=== PATIENT | female | born 2000 | race Caucasian/White ===

== ENCOUNTER 2019-02-24 21:08 | Emergency (ER) | payer OTHER ==
[2019-02-24 21:24] VITALS: BP 123/74; PULSE 63; RESP 16; TEMP 98.2
[2019-02-24] MEDS ORDERED: LIDOCAINE 1%-EPI 1:100,000 20 ML VIAL SQ STA (21:49)
--- NOTE | 2019-02-24 21:51 | ED ---
General Adult HPI - General Chief complaint: Skin/Abscess/Foreign Body Stated complaint: cyst Time Seen by Provider: 02/24/19 21:25 Source: patient Mode of arrival: ambulatory Limitations: no limitations - History of Present Illness Initial comments: Patient is a 18-year-old female with history of pilonidal cyst is presenting to emergency Department with a chief complaint of a cyst on the tailbone. She reports the last time she had a possible cyst was 2 years ago and was treated with antibiotics no incision and drainage. She states few days ago she developed a cyst on the tailbone with no previous trauma to the region. She states it has gradually increased in size and pain severity. Patient reports it is very uncomfortable to sit or move as it causes irritation to the region. Patient reports taking [id number] ibuprofen with minimal improved. - Related Data Previous Rx's Medication Instructions Recorded Doxycycline Monohydrate [Monodox] 100 mg PO Q12HR #14 cap 02/24/19 Allergies Allergy/AdvReac Type Severity Reaction Status Date / Time sulfamethoxazole Allergy Rash/Hives Verified 02/24/19 21:24 [From Bactrim] trimethoprim [From Bactrim] Allergy Rash/Hives Verified 02/24/19 21:24 Review of Systems ROS Statement: Those systems with pertinent positive or pertinent negative responses have been documented in the HPI. ROS Other: All systems not noted in ROS Statement are negative. Past Medical History Past Medical History: No Reported History History of Any Multi-Drug Resistant Organisms: MRSA Date of last positivie culture/infection: 2013 MDRO Source:: legs Past Surgical History: Tonsillectomy Past Psychological History: Anxiety, Depression Smoking Status: Current every day smoker Past Alcohol Use History: None Reported Past Drug Use History: None Reported General Exam Limitations: no limitations General appearance: alert, in no apparent distress Head exam: Present: atraumatic, normocephalic, normal inspection Eye exam: Present: normal appearance Pupils: Present: normal accommodation ENT exam: Present: normal exam Neck exam: Present: normal inspection, full ROM Respiratory exam: Present: normal lung sounds bilaterally Cardiovascular Exam: Present: regular rate, normal rhythm, normal heart sounds Extremities exam: Present: normal inspection, full ROM Back exam: Present: normal inspection, full ROM, other (Pilonidal cyst) Neurological exam: Present: alert, oriented X3 Psychiatric exam: Present: normal affect, normal mood Skin exam: Present: warm, dry, intact, normal color Course Vital Signs 02/24/19 21:22 Temperature 98.2 F Pulse Rate 63 Respiratory 16 Rate Blood Pressure 123/74 O2 Sat by Pulse 99 Oximetry Procedures - Incision & Drainage Consent Obtained: verbal consent Indication: Pilonidal cyst Site: other (Pilonidal cyst) Size (cm): 2 Anesthetic Used: lidocaine 1%, with epi Amount (mLs): 5 Sterile Field Used?: Yes Scalpel Used: #11 Needle Aspiration Performed?: No Irrigation Performed?: Yes I&D Drainage Obtained: Pus, Blood Culture Obtained?: Yes Complications: pain, bleeding Patient Tolerated Procedure: well, no complications Medical Decision Making - Medical Decision Making Patient is a 18-year-old female presents emergency department with chief complaint of a pilonidal cyst. On exam patient appears to have a draining pilonidal cyst. I&D performed with moderate amount of pus removed. Patient will be discharged with antibiotics. Patient advised to follow up with primary care. Patient advised to follow proper wound care. Patient given Tylenol 3 for pain. Culture pending. Patient advised to alternate between Tylenol and ibuprofen for pain control. Strict return parameters were thoroughly discussed with patient was understanding and agreeable. Case discussed with physician. Disposition Clinical Impression: Pilonidal cyst with abscess Disposition: HOME SELF-CARE Condition: Stable Instructions (If sedation given, give patient instructions): Pilonidal Cyst (ED), Abscess (ED), Pilonidal Cyst Excision (DC) Additional Instructions: Please follow with primary care. Please follow proper wound care instructions. Please take prescribed medication as directed. Please return to emergency department is symptoms worsen. Prescriptions: Doxycycline Monohydrate [Monodox] 100 mg PO Q12HR #14 cap Is patient prescribed a controlled substance at d/c from ED?: No Referrals: None,Stated [Primary Care Provider] - 1-2 days Time of Disposition: 22:39
[2019-02-24] MEDS ORDERED: Acetaminophen-Codeine 300-30mg TAB PO STA (22:22)
== END 2019-02-24 22:49 | disposition home or self-care (01) ==
LOC: EC 21:08
DX: L05.01 Pilonidal cyst with abscess (principal); F17.200 Nicotine dependence, unspecified, uncomplicated; Z88.2 Allergy status to sulfonamides; Z86.14 Personal history of Methicillin resistant Staphylococcus aureus infection
CPT/HCPCS: 10080; 87070; 87205; 99283

== ENCOUNTER 2019-03-25 10:59 | Emergency (ER) | payer OTHER ==
[2019-03-25 12:10] VITALS: RESP 16
[2019-03-25] MEDS ORDERED: LIDOCAINE 1%-EPI 1:100,000 20 ML VIAL SQ STA (12:28)
--- NOTE | 2019-03-25 13:08 | ED ---
General Adult HPI - General Chief complaint: Recheck/Abnormal Lab/Rx Stated complaint: tailbone pain Time Seen by Provider: 03/25/19 12:12 Source: patient Mode of arrival: ambulatory Limitations: no limitations - History of Present Illness Initial comments: Patient is a 18-year-old female presenting to emergency Department with a chief complaint of a cyst on the tailbone. Patient reports she was here about a month ago for possible cyst that was drained and she was started on antibiotics. Patient reports the cyst had almost completely resolved however. Return over the last several days. Patient reports that because she wore tight jeans and the cyst return. Patient reports is still just as painful. Patient reports has been draining over the last 2-3 days. Patient denies taking medication to alleviate the symptoms. Patient reports it is very difficult to sit. Denies any night sweats fevers or chills. - Related Data Previous Rx's Medication Instructions Recorded Doxycycline Monohydrate [Monodox] 100 mg PO Q12HR #14 cap 02/24/19 Clindamycin [Cleocin] 150 mg PO Q6H #40 capsule 03/25/19 Allergies Allergy/AdvReac Type Severity Reaction Status Date / Time sulfamethoxazole Allergy Rash/Hives Verified 03/25/19 12:10 [From Bactrim] trimethoprim [From Bactrim] Allergy Rash/Hives Verified 03/25/19 12:10 Review of Systems ROS Statement: Those systems with pertinent positive or pertinent negative responses have been documented in the HPI. ROS Other: All systems not noted in ROS Statement are negative. Past Medical History Past Medical History: No Reported History History of Any Multi-Drug Resistant Organisms: MRSA Date of last positivie culture/infection: 2013 MDRO Source:: legs Past Surgical History: Tonsillectomy Past Psychological History: Anxiety, Depression Smoking Status: Current every day smoker Past Alcohol Use History: None Reported Past Drug Use History: Marijuana General Exam Limitations: no limitations General appearance: alert, in no apparent distress Head exam: Present: atraumatic, normocephalic, normal inspection Eye exam: Present: normal appearance, PERRL, EOMI Pupils: Present: normal accommodation ENT exam: Present: normal exam, mucous membranes moist Neck exam: Present: normal inspection, full ROM Respiratory exam: Present: normal lung sounds bilaterally Cardiovascular Exam: Present: regular rate, normal rhythm, normal heart sounds Extremities exam: Present: normal inspection, full ROM Back exam: Present: full ROM, tenderness (Pilonidal cyst that is very tender to the touch). Absent: normal inspection (Draining pilonidal cyst.) Neurological exam: Present: alert, oriented X3 Psychiatric exam: Present: normal affect, normal mood Skin exam: Present: warm, dry, intact, normal color Course Vital Signs 03/25/19 12:06 Temperature 98.6 F Pulse Rate 89 Respiratory 16 Rate Blood Pressure 125/80 O2 Sat by Pulse 99 Oximetry Procedures - Incision & Drainage Consent Obtained: verbal consent Indication: Pilonidal cyst Site: other (Pilonidal cyst with abscess) Anesthetic Used: lidocaine 1%, with epi Amount (mLs): 5 I&D Cleaning Method: Alcohol Wipe Sterile Field Used?: No Scalpel Used: #11 Needle Aspiration Performed?: Yes Irrigation Performed?: No I&D Drainage Obtained: Pus, Blood Culture Obtained?: Yes Patient Tolerated Procedure: well, no complications Medical Decision Making - Medical Decision Making She is a 18-year-old female presenting to the emergency department with a chief complaint of a prognosis. This is a recurrent case. It was drained about a month ago. Patient was given Bactrim last time. Patient will be discharged with clindamycin this time. Large amounts of pus removed. Culture obtained. Patient asked to follow-up with a general surgeon. Strict return parameters were thoroughly discussed with patient was understanding and agreeable. Patient given wound care instructions. Case discussed with physician. Disposition Clinical Impression: Pilonidal cyst with abscess Disposition: HOME SELF-CARE Condition: Stable Instructions (If sedation given, give patient instructions): Pilonidal Cyst (ED) Additional Instructions: This follow-up with a general surgeon. Please return to emergency department if symptoms worsen. Is patient prescribed a controlled substance at d/c from ED?: No Referrals: None,Stated [Primary Care Provider] - 1-2 days Topher Wilson MD [Medical Doctor] - 1-2 days Time of Disposition: 13:29
[2019-03-25] MEDS ORDERED: ACET/COD 300 MG/30 MG STARTER PACK 6 TAB BTL PO STA (13:28)
[2019-03-25 13:37] VITALS: BP 121/74; PULSE 79; TEMP 97.9
== END 2019-03-25 13:36 | disposition home or self-care (01) ==
LOC: EC 10:59
DX: L05.01 Pilonidal cyst with abscess (principal); F17.200 Nicotine dependence, unspecified, uncomplicated; Z88.2 Allergy status to sulfonamides; Z86.14 Personal history of Methicillin resistant Staphylococcus aureus infection
CPT/HCPCS: 10080; 87070; 87205; 99283

== ENCOUNTER 2020-01-25 12:54 | Outpatient (CLI) | payer OTHER ==
[2020-01-25 15:12] VITALS: BP 124/76; PULSE 85; RESP 16; TEMP 97.4
--- NOTE | 2020-02-06 08:20 | P.MSEPDOC ---
Presenting Problems - Arrival Data Date of Arrival on Unit: 01/25/20 Time of Arrival on Unit: 13:00 Mode of Transport: Wheelchair - Complaint OB-Reason for Admission/Chief Complaint: Rule Out SROM, Vaginal Bleeding Medical History - Information : 2 Para: 0 Term: 0 : 0 Abortions: Spontaneous or Elective: 1 Number of Living Children: 0 - Gestational Age Gestational Age by BOZENA (wks/days): 31 Weeks and 6 Days Review of Systems - Review of Systems Constitutional: No problems Breast: No problems ENT: No problems Cardiovascular: No problems Respiratory: No problems Gastrointestinal: No problems Genitourinary: No problems Musculoskeletal: No problems Neurological: No problems Skin: No problems Vital Signs - Temperature Temperature: 97.4 F Temperature Source: Temporal Artery Scan - Pulse Pulse Oximetery Pulse Rate: 85 Pulse Assessment Method: Pulse Oximetry - Respirations Respiratory Rate: 16 O2 Sat by Pulse Oximetry: 99 - Blood Pressure Right Arm Sitting Blood Pressure: 124/76 Blood Pressure Mean: 92 Blood Pressure Source: Automatic Cuff Medical Screen Scoring (Pre) - Cervical Exam Dilation: 0 cm = 0 Membranes: Intact - Uterine Contractions Frequency: > 5 minutes apart = 1 Duration: > 40 seconds = 2 Intensity: N/A - Maternal Vital Signs Maternal Temperature: N/A Maternal Blood Pressure: N/A Signs of Preeclampsia: N/A Maternal Respirations: N/A - Assessment - Baby A Baseline FHR: 130 Heart Rate - NICHD Category: Category I (Normal) = 0 NST: Reactive Position: N/A Station: N/A - Total Score - Baby A Total Score - Baby A: 3 - Total Score - Baby B Total Score - Baby B: 3 - Total Score - Baby C Total Score - Baby C: 3 - Level of Risk - Baby A Level of Risk - Baby A: Low (0-5) - Level of Risk - Baby B Level of Risk - Baby B: Low (0-5) - Level of Risk - Baby C Level of Risk - Baby C: Low (0-5) Physician Notification (Pre) - Physician Notified Physician Notified Date: 01/25/20 Physician Notified Time: 14:55 New Order Received: Yes Medical Screen Scoring (Post) - Cervical Exam Dilation: 0 cm = 0 Membranes: Intact - Uterine Contractions Frequency: > 5 minutes apart = 1 Duration: > 40 seconds = 2 Intensity: N/A - Maternal Vital Signs Maternal Temperature: N/A Maternal Blood Pressure: N/A Signs of Preeclampsia: N/A Maternal Respirations: N/A - Pain Assessment Pain Scale Used: Numeric (1 - 10) Pain Intensity: 0 - Maternal Trauma Maternal Trauma: N/A - Assessment - Baby A Heart Rate: 130 Heart Rate - NICHD Category: Category I (Normal) = 0 NST: Reactive Position: N/A Station: N/A - Total Score Total Score - Baby A: 3 Total Score - Baby B: 3 Total Score - Baby C: 3 - Post Treatment Level of Risk Post Treatment Level of Risk - Baby A: Low (0-5) Post Treatment Level of Risk - Baby B: Low (0-5) Post Treatment Level of Risk - Baby C: Low (0-5) Physician Notification (Post) - Physician Notified Physician Notified Date: 01/25/20 Physician Notified Time: 14:55 Physician/Practitioner Notified:: Dr Zamudio New Order Received: Yes Disposition - Disposition OB Disposition: Discharge to home, Written follow up instructions reviewed Discharge Date: 01/25/20 Discharge Time: 15:00 I agree with the RN Medical Screening Exam: Yes Risk & Benefit of care provided described in d/c instruction: Yes Diagnosis: FALSE LABOR BEFORE 37 COMPLETED WEEKS OF GEST, THIRD TRI
== END 2020-01-25 15:00 | disposition home or self-care (01) ==
LOC: FBPOP 12:54
PROVIDERS: ATTEND Obstetrics & Gynecology
DX: O47.03 False labor before 37 completed weeks of gestation, third trimester (principal); Z3A.31 31 weeks gestation of pregnancy
CPT/HCPCS: 59025; 84112; 82731; G0463; 99213

== ENCOUNTER 2020-03-18 07:54 | Inpatient (IN) | payer OTHER ==
[2020-03-18] MEDS ORDERED: LIDOCAINE 0.5% (PF) 5 MG/ML (50 ML SDV) SQ PRN (08:18)
[2020-03-18] MEDS ORDERED: METHYLERGONOVINE 0.2 MG/ML 1 ML AMP IM PRN (08:18)
[2020-03-18] MEDS ORDERED: OXYTOCIN 10 UNIT/ML 1 ML VIAL IM PRN (08:18)
[2020-03-18] MEDS ORDERED: CARBOPROST TROMETHAMINE 250 MCG/ML 1 ML AMP IM PRN (08:18)
[2020-03-18] MEDS ORDERED: TERBUTALINE 1 MG/ML VIAL SQ PRN (08:18)
[2020-03-18] MEDS ORDERED: OXYTOCIN 30 UNITS/500 ML NS 30 UNIT in SALINE 1 500ML.BAG IV SCH (08:30)
[2020-03-18] MEDS ORDERED: LACTATED RINGERS 1,000 ML IV SCH ×2 (08:30)
[2020-03-18 08:48] LABS: Basophils # (A) 0.1 k/uL (0-0.2); Basophils % (A) 0 %; Eosinophils # (A) 0.1 k/uL (0-0.7); Eosinophils % (A) 0 %; HCT 40.1 % (34.0-46.0); HGB 13.7 gm/dL (11.4-16.0); Lymphocytes # (A) 1.5 k/uL (1.0-4.8); Lymphocytes % (A) 8 %; MCH 30.6 pg (25.0-35.0); MCHC 34.3 g/dL (31.0-37.0); MCV 89.1 fL (80.0-100.0); Mean Platelet Volume 8.5; Monocytes # (A) 0.5 k/uL (0-1.0); Monocytes % (A) 3 %; Neutrophils # (A) 15.8 k/uL (1.3-7.7); Neutrophils % (A) 88 %; Platelet Count 197 k/uL (150-450); RDW 12.8 % (11.5-15.5)
[2020-03-18] MEDS ORDERED: diphenhydrAMINE 50 MG CAP PO PRN (09:38)
[2020-03-18] MEDS ORDERED: IBUPROFEN 600 MG TAB PO PRN (09:38)
[2020-03-18] MEDS ORDERED: ZOLPIDEM 5 MG TAB PO PRN (09:38)
[2020-03-18] MEDS ORDERED: SIMETHICONE 80 MG CHEWABLE PO PRN (09:38)
[2020-03-18] MEDS ORDERED: LANOLIN CREAM 5 GM TUBE TOPICAL PRN (09:38)
[2020-03-18] MEDS ORDERED: diphenhydrAMINE 25 MG CAP PO PRN (09:38)
[2020-03-18] MEDS ORDERED: ACETAMINOPHEN TAB 325 MG TAB PO PRN (09:38)
[2020-03-18] MEDS ORDERED: OXYTOCIN 20 UNITS/1000 ML NS 1,000 ML IV SCH (09:45)
--- NOTE | 2020-03-18 18:38 | P.HPOB ---
History of Present Illness H&P Date: 03/18/20 Chief Complaint: Contractions This patient is a pleasant 19-year-old 2 para 0 female estimated date of confinement 03/22/2020 estimated gestational age 39-3/7 weeks who presents to labor and delivery with complaints of contractions since 3:30 this morning. Patient's care is per Dr. Zamudio appears to be complicated by tobacco and marijuana use. On admission patient is 6 cm dilated and quickly progresses to 9 cm dilated in active labor. Review of Systems Genitourinary: Reports Menstruation: Reports amenorrhea Past Medical History Past Medical History: No Reported History History of Any Multi-Drug Resistant Organisms: MRSA Date of last positivie culture/infection: 2013 MDRO Source:: legs Past Surgical History: Adenoidectomy, Tonsillectomy Past Anesthesia/Blood Transfusion Reactions: No Reported Reaction Past Psychological History: Anxiety, Depression Smoking Status: Current every day smoker Past Alcohol Use History: None Reported Past Drug Use History: Marijuana - Past Family History Mother Family Medical History: No Reported History Medications and Allergies Home Medications Medication Instructions Recorded Confirmed Type Pnv No.95/Ferrous Fum/Folic AC 1 each PO DAILY 01/25/20 03/18/20 History [ Multivitamin Tablet] Allergies Allergy/AdvReac Type Severity Reaction Status Date / Time sulfamethoxazole Allergy Rash/Hives Verified 03/18/20 08:17 [From Bactrim] trimethoprim [From Bactrim] Allergy Rash/Hives Verified 03/18/20 08:17 Exam Vital Signs Temp Pulse Resp BP 03/18/20 15:46 99.0 F 84 16 133/77 03/18/20 11:36 98.0 F 66 16 132/82 03/18/20 11:06 75 16 140/78 03/18/20 10:36 69 16 138/74 03/18/20 10:21 81 16 143/72 03/18/20 10:06 73 16 139/76 03/18/20 09:51 75 16 142/81 03/18/20 09:36 96.9 F L 81 16 142/81 03/18/20 08:16 97.1 F L 74 16 134/79 03/18/20 08:01 97.1 F L 74 16 134/79 Intake and Output 03/18/20 03/18/20 03/18/20 06:59 14:59 22:59 Other: # Voids 1 1 Weight 79.379 kg - OBG Physical Exam Abdomen: bowel sounds normal, no diffuse tenderness, no bruit present, no guarding noted, no hepatomegaly, no splenomegaly, no mass Vulva: both: normal Vagina: normal moisture, no discharge Cervix: no lesion (Cervix is 9 cm dilated completely effaced 0 station), no discharge Uterus: enlarged Results blood work shows she is A positive, rubella immune, RPR nonreactive, hepatitis B negative, quad screen was negative, ultrasounds shown normal anatomy. Patient did have an abnormal Glucola with a normal three-hour gtt. Result Diagrams: 03/18/20 08:35 Abnormal Lab Results - Last 24 Hours (Table) 03/18/20 Range/Units 08:35 WBC 18.0 H (4.0-11.0) k/uL Neutrophils # 15.8 H (1.3-7.7) k/uL Assessment and Plan Assessment: This is a pleasant 19-year-old 2 para 0 female 39-3/7 weeks' gestation in active labor. Anticipate vaginal delivery. (1) 39 weeks gestation of Current Visit: Yes Status: Acute Code(s): Z3A.39 - 39 WEEKS GESTATION OF SNOMED Code(s): 51242293 (2) Normal labor Current Visit: Yes Status: Acute Code(s): O80 - ENCOUNTER FOR FULL-TERM UNCOMPLICATED DELIVERY; Z37.9 - OUTCOME OF DELIVERY, UNSPECIFIED SNOMED Code(s): 74741118
--- NOTE | 2020-03-18 18:42 | P.PROBDLV ---
Vaginal Delivery Note - . Vaginal Delivery Note: Normal spontaneous vaginal delivery viable female Apgars 9 and 9 delivery time is 0924 hours. Please see dictated H&P for intimate details of this patient's admission. Brief summary this is a pleasant 19-year-old gravid 2 para 0 female estimated gestational age 39-3/7 weeks who presented to labor and delivery with complaints of regular painful contractions since 3:30 this morning. On initial presentation patient's 6 cm dilated and then within approximately half hour goes to 9 cm dilated. Artificial rupture membranes was done for clear fluid. heart tones are category 1. Patient quickly gets to complete and with several pushes pushes the head to the perineum. Posterior perineum is supported and we have controlled delivery of 's head over the intact perineum. Mouth and nares are bulb suctioned. There is a loose nuchal cord. Patient continues to push and deliver is the anterior and posterior shoulder and rest this infant's body. Infant's presentation and straight occiput anterior. This is a vigorous viable female Apgars 9 and 9 delivery time was 0924 hours. has spontaneous respiration and good cry. After delivery of the infant the umbilical cord after it is done pulsating is doubly clamped and cut. It appears to be trivascular. The placenta is then spontaneously delivered intact. Estimated blood loss is approximately 100 mL. There are no lacerations and no repairs required. Infant and mother are stable delivery room. All counts correct 3. There are no complications.
[2020-03-18] MEDS: SENNOSIDES-DOCUSATE SODIUM 1 EACH TAB PO SCH (19:46)
[2020-03-18 21:05] VITALS: RESP 18
--- NOTE | 2020-03-19 06:18 | P.PNOBGVD ---
Subjective - Subjective Patient reports: Reports appetite normal, Reports voiding normally, Reports pain well controlled, Reports ambulating normally : doing well Objective - Latest Vital Signs Latest vital signs: Vital Signs Temp Pulse Resp BP Pulse Ox 03/19/20 00:00 97.8 F 75 18 117/71 100 03/18/20 20:00 97.6 F 90 18 110/65 100 03/18/20 15:46 99.0 F 84 16 133/77 03/18/20 11:36 98.0 F 66 16 132/82 03/18/20 11:06 75 16 140/78 03/18/20 10:36 69 16 138/74 03/18/20 10:21 81 16 143/72 03/18/20 10:06 73 16 139/76 03/18/20 09:51 75 16 142/81 03/18/20 09:36 96.9 F L 81 16 142/81 03/18/20 08:16 97.1 F L 74 16 134/79 03/18/20 08:01 97.1 F L 74 16 134/79 Intake and Output 03/18/20 03/18/20 03/19/20 14:59 22:59 06:59 Other: # Voids 1 1 Weight 79.379 kg - Exam Lungs: bilateral: normal Chest: Normal S1, Normal S2 Extremities: Present: normal Abdomen: Present: normal appearance, soft Uterus: Present: normal, firm - Labs Labs: Abnormal Lab Results - Last 24 Hours (Table) 03/18/20 Range/Units 08:35 WBC 18.0 H (4.0-11.0) k/uL Neutrophils # 15.8 H (1.3-7.7) k/uL Assessment and Plan Assessment: day #1. Patient is resting without complaints and wishes to go home. Vital signs are stable she's afebrile. Uterus is firm nontender she is having normal lochia. My impression this is a normal course. Plan is to continue routine care discharge home later today (1) 39 weeks gestation of Current Visit: Yes Status: Acute Code(s): Z3A.39 - 39 WEEKS GESTATION OF SNOMED Code(s): 71964942 (2) Normal labor Current Visit: Yes Status: Acute Code(s): O80 - ENCOUNTER FOR FULL-TERM UNCOMPLICATED DELIVERY; Z37.9 - OUTCOME OF DELIVERY, UNSPECIFIED SNOMED Code(s): 86189057
--- NOTE | 2020-03-19 06:22 | P.DS ---
Providers Date of admission: 03/18/20 08:09 Expected date of discharge: 03/19/20 Attending physician: Michelle Zamudio Primary care physician: Stated None - Discharge Diagnosis(es) (1) 39 weeks gestation of Current Visit: Yes Status: Acute (2) Normal labor Current Visit: Yes Status: Acute Hospital Course: Please see dictated H&P for intimate details of this patient's admission. Brief summary this is a 19-year-old 2 para 0 female 39-3/7 weeks gestation admitted to labor and delivery complaints of regular painful contractions. Patient quickly goes on to have a vaginal delivery viable female infant. Please see dictated delivery note. day #1 patient is without complaints wishes to go home. Patient's felt be stable for discharge home follow up with Dr. Zamudio and 6 weeks. Procedures: Normal spontaneous vaginal delivery Patient Condition at Discharge: Good Plan - Discharge Summary New Discharge Prescriptions: New Ibuprofen [Motrin] 600 mg PO Q6HR PRN #30 tab PRN Reason: Mild Pain Or Fever >= 100.5 No Action Pnv No.95/Ferrous Fum/Folic AC [ Multivitamin Tablet] 1 each PO DAILY Discharge Medication List Pnv No.95/Ferrous Fum/Folic AC [ Multivitamin Tablet] 1 each PO DAILY 01/25/20 [History] Ibuprofen [Motrin] 600 mg PO Q6HR PRN #30 tab 03/19/20 [Rx] Follow up Appointment(s)/Referral(s): Michelle Zamudio DO [Doctor of Osteopathic Medicine] - 6 Weeks Patient Instructions/Handouts: Vaginal Delivery (DC) Activity/Diet/Wound Care/Special Instructions: No intercourse or anything per vagina for 6 weeks. Please call if any fever, chills, excessive vaginal bleeding, and/or abdominal pain Discharge Disposition: HOME SELF-CARE
[2020-03-19 07:15] LABS: Basophils # (A) 0.1 k/uL (0-0.2); Basophils % (A) 0 %; Eosinophils # (A) 0.2 k/uL (0-0.7); Eosinophils % (A) 1 %; HGB 12.5 gm/dL (11.4-16.0); Lymphocytes # (A) 2.5 k/uL (1.0-4.8); Lymphocytes % (A) 15 %; MCH 30.3 pg (25.0-35.0); MCHC 33.8 g/dL (31.0-37.0); MCV 89.5 fL (80.0-100.0); Mean Platelet Volume 8.7; Monocytes # (A) 0.7 k/uL (0-1.0); Monocytes % (A) 4 %; Neutrophils # (A) 13.4 k/uL (1.3-7.7); Neutrophils % (A) 79 %; Platelet Count 184 k/uL (150-450); RBC 4.14 m/uL (3.80-5.40); RDW 12.9 % (11.5-15.5); WBC 16.9 k/uL (4.0-11.0)
[2020-03-19] MEDS: SENNOSIDES-DOCUSATE SODIUM 1 EACH TAB PO SCH (08:34)
[2020-03-19 08:56] VITALS: BP 128/69; PULSE 76; TEMP 98.1
== END 2020-03-19 11:20 | disposition home or self-care (01) | DRG 807 ==
LOC: FBPOP 07:54 → 4FBP 08:09
PROVIDERS: ADMIT Obstetrics & Gynecology; ATTEND Obstetrics & Gynecology
PROC: 10E0XZZ Delivery of Products of Conception, External Approach (ICD-10-PCS; principal; 2020-03-18)
PROC: 10907ZC Drainage of Amniotic Fluid, Therapeutic from Products of Conception, Via Natural or Artificial Opening (ICD-10-PCS; principal; 2020-03-18)
DX: O69.81X0 Labor and delivery complicated by cord around neck, without compression, not applicable or unspecified (principal); Z37.0 Single live birth; O99.344 Other mental disorders complicating childbirth; F32.9 Major depressive disorder, single episode, unspecified; F41.9 Anxiety disorder, unspecified; O99.334 Smoking (tobacco) complicating childbirth; F17.210 Nicotine dependence, cigarettes, uncomplicated; Z3A.39 39 weeks gestation of pregnancy; Z90.89 Acquired absence of other organs; Z86.14 Personal history of Methicillin resistant Staphylococcus aureus infection
CPT/HCPCS: 85025; 86850; 86900; 86901